=== PATIENT | female | born 1940 | race Caucasian/White ===

== ENCOUNTER 2022-11-13 11:15 | Outpatient (OUT) | payer MEDICARE, BC, SELFPAY ==
--- NOTE | 2022-11-13 11:30 | XR_ITS ---
The [address] [address] Patient Name: SURJIT PATIÑO MRN: [id number] date: 1940 Sex: F Assigned Patient Location: [facility] Current Patient Location: [facility] Accession/Order Number: [id number] Exam Date: 11/13/2022 11:45 Report Date: 11/14/2022 02:39 At the request of: JOSE JUAN PAL Procedure: XR tibia fibula RT 2V EXAM: XR tibia fibula RT 2V 11/13/2022 11:45 AM EDT OH001 CLINICAL STATEMENT: Posterior right leg pain M79.604 COMPARISON: No prior studies are available at the time of dictation. TECHNIQUE: AP and lateral views of the right tibia and fibula are submitted. FINDINGS: Total right knee arthroplasty. There is no acute fracture and/or dislocation. The joint spaces are preserved. Plantar calcaneal spur. There is no significant joint effusion. Soft tissues are unremarkable. Bone mineralization is osteopenic for the patient's age. IMPRESSION: Total right knee arthroplasty. No acute fracture and/or dislocation. Osteopenia. Electronically authenticated by: KP ROSE Date: 11/14/2022 02:39
--- NOTE | 2022-11-13 11:30 | XR_ITS ---
[address] [address] Patient Name: SURJIT PATIÑO MRN: [id number] date: 1940 Sex: F Assigned Patient Location: [facility] Current Patient Location: [facility] Accession/Order Number: [id number] Exam Date: 11/13/2022 11:45 Report Date: 11/13/2022 13:01 At the request of: JOSE JUAN PAL Procedure: XR knee RT 2V EXAM: XR knee RT 2V HISTORY: Posterior Right Leg Pain M79.604 COMPARISON: None. TECHNIQUE: 2 views FINDINGS: Status post total replacement of the right knee. Intact hardware. No acute fracture or dislocation. Mild soft tissue swelling. IMPRESSION: Status post total right knee replacement in anatomical position. Electronically authenticated by: TONY HANKS Date: 11/13/2022 13:01
== END 2022-11-13 11:16 ==
LOC: RAD 11:23
PROVIDERS: PCP Family Medicine; Visit Provider Nurse Practitioner Family
DX: M79.604 Pain in right leg (principal); S80.11XA Contusion of right lower leg, initial encounter; Z96.651 Presence of right artificial knee joint; M85.80 Other specified disorders of bone density and structure, unspecified site; X58.XXXA Exposure to other specified factors, initial encounter
CPT/HCPCS: 73560; 73590

== ENCOUNTER 2023-10-20 10:12 | Outpatient (OUT) | payer MEDICARE, BC, SELFPAY ==
--- NOTE | 2023-10-20 10:14 | MM_ITS ---
Patient Name: SURJIT PATIÑO MR#: [id number] : 1940 Exam Date: 10/20/2023 Ordering Doctor: DR JEANIE BURLESON M.D. RADIOLOGY REPORT PROCEDURE: MM TOMOSYNTHESIS SCREENING BI COMPARISON: MG MAMM SCREEN 3D JOSHUA CAD, 10/15/2021. MG MAMM SCREEN 3D JOSHUA CAD, 10/18/2022. INDICATIONS: Screening Calculator Name NCI Breast Cancer Risk Assessment Tool 5 Year Breast Cancer Risk 2.40% Lifetime Breast Cancer Risk 3.50% Personal Breast Cancer No Personal Ovarian Cancer No Treatments None Family Cancers Mother with cervical cancer at age 56; Mother with colon cancer at age 75. LOCATION: [facility] BREAST COMPOSITION: The breasts are heterogeneously dense,which may obscure small masses. FINDINGS: DIAGNOSTIC CATEGORY 1--NEGATIVE. NO CHANGE FROM COMPARISON ASSESSMENT. Scattered benign-appearing calcifications are present. RIGHT BREAST: No significant suspicious finding. LEFT BREAST: No significant suspicious finding. RECOMMENDATIONS: ROUTINE MAMMOGRAM AND CLINICAL EVALUATION IN 12 MONTHS. PLEASE NOTE: A NORMAL MAMMOGRAM DOES NOT EXCLUDE THE POSSIBILITY OF BREAST CANCER. A CLINICALLY SUSPICIOUS PALPABLE LUMP SHOULD BE BIOPSIED. Dictated by: Tho Drake MD on 10/20/2023 at 11:32 Approved by: Tho Drake MD on 10/20/2023 at 11:34
== END 2023-10-20 10:13 | disposition home or self-care (01) ==
LOC: MAMMO 10:12
PROVIDERS: PCP Family Medicine; Visit Provider Family Medicine
DX: Z12.31 Encounter for screening mammogram for malignant neoplasm of breast (principal); Z80.8 Family history of malignant neoplasm of other organs or systems; Z80.0 Family history of malignant neoplasm of digestive organs
CPT/HCPCS: 77063; 77067

== ENCOUNTER 2024-10-22 13:39 | Outpatient (OUT) | payer MEDICARE, BC, SELFPAY ==
--- OUTSIDE RECORDS SUMMARY | 2024-10-22 14:01 | XMS_ITS | CCD ---
Author Organization [facility] Inform ion Partnership [facility] Care Team Providers Care Reverse Unit Operator Name Role Phone SARAH BETH, DR WARE Admitting Unavailable SARAH BETH, DR WARE Attending Unavailable SARAH BETH, DR WARE Primary Care Unavailable SARAH BETH, DR WARE Consulting Unavailable GUERNSEY, DR BARRY Luna Consulting Unavailable JOSUÉ, DR DRE Rae Consulting Unavailable Belén Burleson MD Primary Care Provider Belén Burleson MD Unavailable Belén Burleson MD Primary Care Provider Jeaneth Hunter APRN Attending Provider Belén Burleson Primary Care Unavailable Jeaneth Hunter Attending Unavailable Jeaneth Hunter Admitting Unavailable JENNY ORNELAS Attending Unavailable JR. GORE GEORGE C Attending Unavaila DOTTY Mendez Attending Unavailable CARY MATAMOROS Attending Unavailable JR. GORE GEORGE C Referring UnavailJENNY Rubi Attending Unavailable CARY MATAMOROS Referring Unavailable BELÉN BURLESON Attending Unavailable Medications Current Medications Medication Drug Class(es) Dates Sig (Normalized) Sig (Original) [id number] 200 actuat albuterol 0.09 mg/actuat metered dose inhaler (19 sources) beta2-Adrenergic Agonist Start: 07-30-2024 take 1 puff(s) by inhalation every four to six hours Albuterol Sulfate (Ventolin Hfa) 90 mcg/actuation HFA aerosol inhaler Active 2 PUFF INHALATION EVERY 4-6 HOURS 8.5 July 30, 2024 12:56pm Start: 05-08-2024 End: 07-30-2024 Albuterol Sulfate (Ventolin Hfa) 90 mcg/actuation HFA aerosol inhaler Discontinued INHALATION May 08, 2024 12:00am July 30, 2024 12:56pm Start: 05-20-2023 End: 05-19-2024 take 2 puff(s) by inhalation every four hours for wheezing albuterol HFA (ProAir HFA) 90 mcg/act inhaler Indications: Wheeze Inhale 2 puffs every 4 (four) hours if needed for wheezing 18 g 11 05/20/2023 Active amoxicillin 500 mg oral tablet (15 sources) Penicillin-class Antibacterial Start: 04-29-2024 take 4 tablets by mouth once at mealtime amoxicillin (Amoxil) 500 MG tablet Indications: Status post left knee replacement 4 tabs PO once 30-60 mins before procedure with food 4 tablet 3 04/29/2024 Active Start: 09-02-2023 End: 04-26-2024 take 4 tablets by mouth once at mealtime amoxicillin (Amoxil) 500 MG tablet Indications: Status post left knee replacement 4 tabs PO once 30-60 mins before procedure with food 4 tablet 3 09/02/2023 04/26/2024 Discontinued (Other) aspirin 81 mg delayed release oral tablet (15 sources) Platelet Aggregation Inhibitor, Nonsteroidal Anti-inflammatory Drug take 1 tablet by mouth in the morning aspirin 81 MG EC tablet Take 81 mg by mouth in the morning. Active Bioflavonoid Products (Renata-C) 500-550 MG tablet (15 sources) Bioflavonoid Pro ducts (Renata-C) 500-550 MG tablet Orally Active Calcium Carb-Cholecalciferol (CALCIUM CARBONATE-VITAMIN D3 PO) (15 sources) take 1 tablet by mouth in the morning Calcium Carb-Cholecalciferol (CALCIUM CARBONATE-VITAMIN D3 PO) Take 1 tablet by mouth in the morning and 1 tablet in the evening. Active fluconazole 100 mg oral tablet (2 sources) Azole Antifungal Start : 08-05 End: 08-19 take 1 tablet by mouth once daily fluconazole (Diflucan) 100 MG tablet Indications: Fungal nail infection Take 1 tablet (100 mg) by mouth Daily for 14 days 14 tablet 08/05/2024 08/19/2024 Active hydroCHLOROthiazide 25 mg oral tablet (17 sources) Thiazide Diuretic Start : 08-17 End: 08-17 take 1 tablet by mouth once daily hydroCHLOROthiazide (HYDRODiuril) 25 MG tablet Indications: Essential hypertension (CMS/HCC) Take 1 tablet (25 mg) by mouth Daily 90 tablet 3 07/03/2024 Active methylPREDNISolone 4 mg oral tablet (2 sources) Corticosteroid Start : 07-30 take 1 tablet by mouth once Methylprednisolone (Medrol (Andrae)) 4 mg tablets,dose pack Active 0 PO per package directions July 30, 2024 12:00am PO PER PKG DIR 24 hr metoprolol succinate 50 mg extended release oral tablet (17 sources) beta-Adrenergic Aleena Start : 05-08 take 1 tablet by mouth every twenty-four hours in the morning metoprolol succinate XL (Toprol-XL) 50 MG 24 hr tablet Indications: Benign hypertension (CMS/HCC) TAKE 1 TABLET BY MOUTH IN THE MORNING 100 tablet 3 07/13/2024 Active Start: 04-09-2024 take 1 tablet by chastity th every twenty-four hours in the morning metoprolol succinate XL (Toprol-XL) 50 MG 24 hr tablet Indications: Benign hypertension (CMS/HCC) TAKE 1 TABLET BY MOUTH IN THE MORNING 100 tablet 04/09/2024 Active Start: 01-15-2024 take 1 tablet by chastity th every twenty-four hours in the morning metoprolol succinate XL (Toprol-XL) 50 MG 24 hr tablet Indications: Benign hypertension (CMS/HCC) TAKE 1 TABLET BY MOUTH IN THE MORNING 100 tablet 01/15/2024 Active miconazole nitrate 20 mg/ml topical solution (8 sources) Azole Antifungal Start: 08-05-2024 Miconazole Ni trate 2 % solution Indications: Fungal nail infection Apply 1 Application topically Daily Continue x 4 months 29.57 mL 2 08/05/2024 Active terbinafine 250 mg oral tablet (2 sources) Allylamine Antifungal Start: 10-07-2024 End: 10-21-2024 take 1 tablet by mouth once daily terbinafine (LamISIL) 250 MG tablet Indications: Onychomycosis of nail of digit of hand Take 1 tablet (250 mg) by mouth Daily for 14 days 14 tablet 10/07/2024 10/21/2024 Active Completed/Discontinued Medications Medication Drug Class(es) Dates Sig (Normalized) Sig (Original) meloxicam 7.5 mg oral tablet (2 sources) Nonsteroidal Anti-inflammatory Drug Start: 05-08-2024 End: 07-30-2024 take 1 tablet by mouth once daily Meloxicam 7.5 mg tablet Discontinued 7.5 MG PO Daily 7 May 08, 2024 12:00am July 30, 2024 11:41am Problems Active Problems Problem Classification Problem Date Documented Date Episodic/Chronic Chronic obstructive pulmonary disease and bronchiectasis (4 sources) Bronchitis; Translations: [Bronchitis, not specified as acute or chronic] 07-30-2024 Episodic Diabetes mellitus without complication (2 sources) Abnormal glucose tolerance test; Translations: [Other abnormal glucose] 04-26-2024 Episodic Essential hypertension (17 sources) Benign essential hypertension; Translations: [Essential (primary) hypertension] Onset: 11-12-2022 04-26-2024 Chronic Menopausal disorders (15 sources) Decreased estrogen level; Translations: [Other primary ovarian failure] Onset: 11-12-2022 11-12-2022 Chronic Mycoses (4 sources) Onychomycosis; Translations: [Tinea unguium] 08-05-2024 Episodic Neoplasms of unspecified nature or uncertain behavior (2 sources) Essential thrombocythemia; Translations: [Essential (hemorrhagic) thrombocythemia] 08-05-2024 Chronic Osteoarthritis (20 sources) Primary gonarthrosis, bilateral; Translations: [Bilateral primary osteoarthritis of knee] Onset: 11-12-2022 11-12-2022 Chronic Other connective tissue disease (15 sources) Artificial knee joint present; Translations: [Presence of unspecified artificial knee joint] Onset: 11-12-2022 11-12-2022 Chronic Other connective tissue disease (17 sources) History of right total knee replacement; Translations: [Presence of right artificial knee joint] Onset: 11-12-2022 11-12-2022 Chronic Other connective tissue disease (15 sources) History of total knee arthroplasty; Translations: [Presence of left artificial knee joint] Onset: 11-12-2022 11-12-2022 Chronic Other injuries and conditions due to external causes (2 sources) Injury of right shoulder; Translations: [Unspecified injury of right shoulder and upper arm, initial encounter] 05-08-2024 Episodic Other injuries and conditions due to external causes (2 sources) Unspecified injury of right shoulder and upper arm, initial encounter; Translations: [Shoulder and upper arm injury] 05-08-2024 Episodic Other lower respiratory disease (1 source) Wheezing; Translations: [Wheezing] Onset: 07-30-2024 Episodic Other non-traumatic joint disorders (2 sources) Pain in left knee; Translations: [Pain in joint, lower leg] 09-14-2024 Episodic Other screening for suspected conditions (not mental disorders or infectious disease) (2 sources) Patient encounter status; Translations: [Encounter for screening for lipoid disorders] 04-26-2024 Episodic Other upper respiratory disease (15 sources) Seasonal allergy; Translations: [Other seasonal allergic rhinitis] Onset: 11-12-2022 11-12-2022 Chronic Other upper respiratory infections (2 sources) Viral upper respiratory tract infection; Translations: [Acute upper respiratory infection, unspecified] 08-05-2024 Episodic Spondylosis; intervertebral disc disorders; other back problems (15 sources) Inflammation of sacroiliac joint; Translations: [Sacroiliitis, not elsewhere classified] Onset: 11-12-2022 11-12-2022 Chronic Past or Other Problems Problem Classification Problem Date Documented Date Episodic/Chronic Other lower respiratory disease (15 sources) Orthopnea; Translations: [Orthopnea] Onset: 05-20-2023 05-20-2023 Episodic Other lower respiratory disease (17 sources) Wheezing; Translations: [Wheezing] Onset: 05-20-2023 05-20-2023 Episodic Otitis media and related conditions (14 sources) Dysfunction of left eustachian tube; Translations: [Unspecified Eustachian tube disorder, left ear] Onset: 04-26-2024 04-26-2024 Episodic Sprains and strains (15 sources) Sprain of left sternoclavicular joint, initial encounter; Translations: [Sprain of sternoclavicular (joint) (ligament)] Onset: 08-18-2023 08-18-2023 Episodic Results Test Name Value Interpretation Reference Range Facility XR Knee - left 1 or 2 Viewso n 09-14-2024 Imaging Result: AP and lateral of left knee showed surgical position and alignment of prosthetic components without evidence of loosening or wear to the femoral, tibial, or patellar components. The alignment appeared to be anatomic. There was no evidence of accelerated or asymmetric wear to the patellar button or tibial tray. There was no evidence of fracture and/or dislocation. Impression: Unremarkable left total knee arthroplasty. [facility] Study observation (narrative) [facility] X-ray reportOrdered By: Antonio Gonzalez on 07-30-2024 Study report [facility] Main [address] [address] XRay Report Signed Patient: Surjit Patiño MR#: [id number] : 1940 Acct:[id number] Age/Sex: 83 / F ADM Date: 5 Loc: XDUCLY Room: Type: REG CLI Attending Dr: Jeaneth Hunter DEVELOPMENT COACH Copies to: Jeaneth Hunter APRN~ Ordering Provider: Jeaneth Hunter APRN Date of Service: 07/30/24 XR/XR chest 2V*: COUGH Plain film chest 2 view HISTORY: Left upper chest pain. Productive cough COMPARISON: None FINDINGS: SUPPORT DEVICES: None POSTSURGICAL CHANGES: None HEART: Within normal limits PULMONARY INOCENCIO: Within normal limits MEDIASTINUM: Unremarkable LUNGS AND PLEURA: No acute lung process, pleural effusion or pneumothorax identified. BONY STRUCTURES: Thoracic spondylosis ADDITIONAL FINDINGS None XR/XR chest 2V* IMPRESSION: No acute process. Impression dictated by: Thiago Gonzalez M.D.07/30/2024 12:28 PM Dictation Location: [place] [address] Transcribed By: [facility] 07/30/24 1228 Dictated By: Thiago Gonzalez DO 07/30/24 1227 Signed By: 07/30/24 1228 [facility] XR chest 2V*on 07-30-2024 XR chest 2V* [facility] Main [address] [address] XRay Report Signed Patient: Surjit Patiño MR#: [id number] : 1940 Acct:[id number] Age/Sex: 83 / F ADM Date: 07/30/24 Loc: XDUCLY Room: Type: REG CLI Attending Dr: Jeaneth Hunter DEVELOPMENT COACH Copies to: Jeaneth Hunter APRN Ordering Provider: Jeaneth Hunter APRN Date of Service: 07/30/24 XR/XR chest 2V*: COUGH Plain film chest 2 view HISTORY: Left upper chest pain. Productive cough COMPARISON: None FINDINGS: SUPPORT DEVICES: None POSTSURGICAL CHANGES: None HEART: Within normal limits PULMONARY INOCENCIO: Within normal limits MEDIASTINUM: Unremarkable LUNGS AND PLEURA: No acute lung process, pleural effusion or pneumothorax identified. BONY STRUCTURES: Thoracic spondylosis ADDITIONAL FINDINGS None XR/XR chest 2V* IMPRESSION: No acute process. Impression dictated by: Thiago Gonzalez M.D.07/30/2024 12:28 PM Dictation Location: [place] [address] Transcribed By: [facility] 07/30/24 1228 Dictated By: Thiago Gonzalez DO 07/30/24 1227 Signed By: 07/30/24 1228 Normal [facility] CBC (INCLUDES DIFF/PLT)on Basophils (Bld) [#/Vol] 0.048 10*3/uL Normal 0-200 [facility] Comment on above: Performed By: #### 6 399, 80041, 7600 #### [facility] [place] [address] Newspaper Clipper: Fidel Gamble MD Basophils/100 WBC (Bld) 0.7 % Normal [facility] Comment on above: Performed By: #### 6 399, 79971, 7600 #### [facility] [place] [address] Newspaper Clipper: Fidel Gamble MD Eosinophils (Bld) [#/Vol] 0.138 10*3/uL Normal 15-500 [facility] Comment on above: Performed By: #### 6 399, 46393, 7600 #### [facility] [place] [address] Newspaper Clipper: Fidel Gamble MD Eosinophils/100 WBC (Bld) 2.0 % Normal [facility] Comment on above: Performed By: #### 6 399, 44791, 7600 #### [facility] [place] [address] Newspaper Clipper: Fidel Gamble MD Erythrocyte distribution width (RBC) [Ratio] 11.8 % Normal 11.0-15.0 [facility] Comment on above: Performed By: #### 6 399, 94127, 7600 #### [facility] of [place] [address] Newspaper Clipper: Fidel Gamble MD Hematocrit (Bld) [Volume fraction] 42.0 % Normal 35.0-45.0 [facility] Comment on above: Performed By: #### 6 399, 52339, 7600 #### [facility] [place] [address] Newspaper Clipper: Fidel Gamble MD Hemoglobin (Bld) [Mass/Vol] 14.1 g/dL Normal 11.7-15.5 [facility] Comment on above: Performed By: #### 6 399, 55411, 7600 #### [facility] [place] [address] Newspaper Clipper: Fidel Gamble MD Lymphocytes (Bld) [#/Vol] 0.814 10*3/uL Low 850-3900 [facility] Comment on above: Performed By: #### 6 399, 63743, 0 #### [facility] of [place] [address] Newspaper Clipper: Fidel Gamble MD Lymphocytes/100 WBC (Bld) 11.8 % Normal [facility] Comment on above: Performed By: #### 6 399, 57783, 0 #### [facility] [place] [address] Newspaper Clipper: Fidel Gamble MD MCH (RBC) [Entitic mass] 30.1 pg Normal 27.0-33.0 [facility] Comment on above: Performed By: #### 6 399, 17038, 7600 #### [facility] of [place] [address] Newspaper Clipper: Fidel Gamble MD MCHC (RBC) [Mass/Vol] 33.6 g/dL Normal 32.0-36.0 [facility] Comment on above: Result Comment: For adults, a slight decrease in the calculated MCHC value (in the range of 30 to 32 g/dL) is most likely not clinically significant; however, it should be interpreted with caution in correlation with other red cell parameters and the patient's clinical condition. Performed By: #### 6 399, 59599, 0 #### [facility] of [place] [address] Newspaper Clipper: Fidel Gamble MD MCV (RBC) [Entitic vol] 89.6 fL Normal 80.0-100.0 [facility] Comment on above: Performed By: #### 6 399, 36223, 0 #### [facility] [place] [address] Newspaper Clipper: Fidel Gamble MD Monocytes (Bld) [#/Vol] 0.58 10*3/uL Normal 200-950 [facility] Comment on above: Performed By: #### 6 399, , 0 #### [facility] [place] [address] Newspaper Clipper: Fidel Gamble MD Monocytes/100 WBC (Bld) 8.4 % Normal [facility] Comment on above: Performed By: #### 6 399, 00080, 0 #### [facility] [place] [address] Newspaper Clipper: Fidel Gamble MD Neutrophils (Bld) [#/Vol] 5.32 10*3/uL Normal 0116-2265 [facility] Comment on above: Performed By: #### 6 399, 07635, 0 #### [facility] [place] [address] Newspaper Clipper: Fidel Gamble MD Neutrophils/100 WBC (Bld) 77.1 % Normal [facility] Comment on above: Performed By: #### 6 399, 76898, 7600 #### [facility] [place] [address] Newspaper Clipper: Fidel Gamble MD Platelet mean volume (Bld) [Entitic vol] 9.8 fL Normal 7.5-12.5 [facility] Comment on above: Performed By: #### 6 399, 68000, 7600 #### [facility] [place] [address] Newspaper Clipper: Fidel Gamble MD Platelets (Bld) [#/Vol] 422 10*3/uL High 140-400 [facility] Comment on above: Performed By: #### 6 399, 67857, 7600 #### [facility] [place] [address] Newspaper Clipper: Fidel Gamble MD RBC (Bld) [#/Vol] 4.69 10*6/uL Normal 3.80-5.10 [facility] Comment on above: Performed By: #### 6 399, 04049, 7600 #### [facility] [place] [address] Newspaper Clipper: Fidel Gamble MD WBC (Bld) [#/Vol] 6.9 10*3/uL Normal 3.8-10.8 [facility] Comment on above: Performed By: #### 6 399, 55292, 7600 #### [facility] [place] [address] Newspaper Clipper: Fidel Gamble MD CBC W Auto Differential pane l (Bld)on 04-27-2024 Basophils (Bld) [#/Vol] 48 10*3/uL [facility] Basophils/100 WBC (Bld) 0.7 % [facility] Eosinophils (Bld) [#/Vol] 138 10*3/uL [facility] Eosinophils/100 WBC (Bld) 2 % [facility] Erythrocyte distribution width (RBC) [Ratio] 11.8 % 11.0 - 15.0 % [facility] Hematocrit (Bld) [Volume fraction] 42 % 35.0 - 45.0 % [facility] Hemoglobin (Bld) [Mass/Vol] 14.1 g/dL 11.7 - 15.5 g/dL [facility] Lymphocytes (Bld) [#/Vol] 814 10*3/uL Low [facility] Lymphocytes/100 WBC (Bld) 11.8 % [facility] MCH (RBC) [Entitic mass] 30.1 pg 27.0 - 33.0 pg [facility] MCHC (RBC) [Mass/Vol] 33.6 g/dL 32.0 - 36.0 g/dL [facility] Comment on above: For adults, a slight decrease in the calculated MCHC value (in the range of 30 to 32 g/dL) is most likely not clinically significant; however, it should be interpreted with caution in correlation with other red cell parameters and the patient's clinical condition. MCV (RBC) [Entitic vol] 89.6 fL 80.0 - 100.0 fL [facility] Monocytes (Bld) [#/Vol] 580 10*3/uL [facility] Monocytes/100 WBC (Bld) 8.4 % [facility] Neutrophils (Bld) [#/Vol] 5320 10*3/uL [facility] Neutrophils/100 WBC (Bld) 77.1 % [facility] Platelet mean volume (Bld) [Entitic vol] 9.8 fL 7.5 - 12.5 fL [facility] ([facility]ld) [#/Vol] 422 10*3/uL High [facility] RBC (Bld) [#/Vol] 4.69 10*6/uL [facility] WBC (Bld) [#/Vol] 6.9 10*3/uL [facility] Albumin [Mass/Vol] 4.5 g/dL Normal 3.6-5.1 [facility] Comment on above: Performed By: #### 6 399, 98828, 2180 #### [facility] [address], [address] [place] [phone] Newspaper Clipper: Fidel Gamble MD Albumin/Globulin [Mass ratio] 1.5 {ratio} Normal 1.0-2.5 [facility] Comment on above: Performed By: #### 6 399, 71215, 0120 #### [facility] [address], [address] [place] [phone] Newspaper Clipper: Fidel Gamble MD ALP [Catalytic activity/Vol] 83 U/L Normal 37-153 [facility] Comment on above: Performed By: #### 6 399, 44129, 7600 #### [facility] of [address], [address] [place] [address] Newspaper Clipper: Fidel Gamble MD ALT [Catalytic activity/Vol] 14 U/L Normal 6-29 [facility] Comment on above: Performed By: #### 6 399, 96420, 7600 #### [facility] of [address], [address] [place] [address] Newspaper Clipper: Fidel Gamble MD AST [Catalytic activity/Vol] 20 U/L Normal 10-35 [facility] Comment on above: Performed By: #### 6 399, 08974, 7600 #### [facility] of [place] [address] Newspaper Clipper: Fidel Gamble MD Bilirubin [Mass/Vol] 0.7 mg/dL Normal 0.2-1.2 [facility] Comment on above: Performed By: #### 6 399, 60011, 7600 #### [facility] of [place] [address] Newspaper Clipper: Fidel Gamble MD BUN/CREATININE RATIO SEE NOTE: Normal 6-22 [facility] Comment on above: Result Comment: Not Reported: BUN and Creatinine are within reference range. Performed By: #### 6 399, 30770, 7600 #### [facility] of [address], [address] [place] [address] Newspaper Clipper: Fidel Gamble MD Calcium [Mass/Vol] 9.9 mg/dL Normal 8.6-10.4 [facility] Comment on above: Performed By: #### 6 399, 77618, 7600 #### [facility] [place] [address] Newspaper Clipper: Fidel Gamble MD Chloride [Moles/Vol] 94 mmol/L Low 98-110 [facility] Comment on above: Performed By: #### 6 399, 45694, 7600 #### [facility] of [place] [address] [place] [address] Newspaper Clipper: Fidel Gamble MD CO2 [Moles/Vol] 29 mmol/L Normal 20-32 [facility] Comment on above: Performed By: #### 6 399, 93002, 7600 #### [facility] of [address], [address] [place] [address] Newspaper Clipper: Fidel Gamble MD Creatinine [Mass/Vol] 0.79 mg/dL Normal 0.60-0.95 [facility] Comment on above: Performed By: #### 6 399, 54217, 0 #### [facility] [place] [address] Newspaper Clipper: Fidel Gamble MD GFR/1.73 sq M.predicted among non-blacks MDRD (S/P/Bld) [Vol rate/Area] 75 mL/min/{1.73_m2} Normal > OR = 60 [facility] Comment on above: Performed By: #### 6 399, 93724, 0 #### [facility] of [address], [address] [place] [address] Newspaper Clipper: Fidel Gamble MD Globulin (S) [Mass/Vol] 3.0 g/dL Normal 1.9-3.7 [facility] Comment on above: Performed By: #### 6 399, 80777, 0 #### [facility] [place] [address] Newspaper Clipper: Fidel Gamble MD Glucose [Mass/Vol] 107 mg/dL High 65-99 [facility] Comment on above: Result Comment: Fasting reference interval For someone without known diabetes, a glucose value between 100 and 125 mg/dL is consistent with prediabetes and should be confirmed with a follow-up test. Performed By: #### 6 399, 26539, 7600 #### [facility] of [address], [address] [place] [address] Newspaper Clipper: Fidel Gamble MD Potassium [Moles/Vol] 4.3 mmol/L Normal 3.5-5.3 [facility] Comment on above: Performed By: #### 6 399, 94371, 7600 #### [facility] of [address], [address] [place] [address] Newspaper Clipper: Fidel Gamble MD Protein [Mass/Vol] 7.5 g/dL Normal 6.1-8.1 [facility] Comment on above: Performed By: #### 6 399, 57019, 7600 #### [facility] of [address], [address] [place] [address] Newspaper Clipper: Fidel Gamble MD Sodium [Moles/Vol] 133 mmol/L Low 135-146 [facility] Comment on above: Performed By: #### 6 399, 94851, 7600 #### [facility] of [address], [address] [place] [address] Newspaper Clipper: Fidel Gamble MD Urea nitrogen [Mass/Vol] 13 mg/dL Normal 7-25 [facility] Comment on above: Performed By: #### 6 399, 63076, 7600 #### [facility] [place] [address] Newspaper Clipper: Fidel Gamble MD LIPID PANEL, [facility] 04-09 Cholesterol [Mass/Vol] 204 mg/dL High <200 [facility] Comment on above: Order Comment: FASTI NG:YES FASTING: YES Performed By: #### 6 399, 52873, 7600 #### [facility] [place] [address] Newspaper Clipper: Fidel Gamble MD Cholesterol in HDL [Mass/Vol] 69 mg/dL Normal > OR = 50 [facility] Comment on above: Order Comment: FASTI NG:YES FASTING: YES Performed By: #### 6 399, 78002, 7600 #### [facility] [place] [address] Newspaper Clipper: Fidel Gamble MD Cholesterol in LDL [Mass/Vol] 114 mg/dL High [facility] Comment on above: Order Comment: FASTI NG:YES FASTING: YES Result Comment: Refe rence range: <100 Desirable range <100 mg/dL for primary prevention; <70 mg/dL for patients with CHD or diabetic patients with > or = 2 CHD risk factors. LDL-C is now calculated using the Tone calculation, which is a validated novel method providing better accuracy than the Friedewald equation in the estimation of LDL-C. Chuy NAVA et al. TASH. 2013;310(19): 5044-1397 (http://education.Enel OGK-5/faq/FEF618) Performed By: #### 6 399, 41117, 7600 #### [facility] [address], [address] [place] [address] Newspaper Clipper: Fidel Gamble MD Cholesterol.total/Ch olesterol in HDL [Mass ratio] 3.0 {ratio} Normal <5.0 [facility] Comment on above: Order Comment: FASTI NG:YES FASTING: YES Performed By: #### 6 [id number], [id number], [id number] #### [facility] [address], [address] [place] [address] Newspaper Clipper: Fidel Gamble MD NON HDL CHOLESTEROL 135 mg/dL (calc) High <130 [facility] Comment on above: Order Comment: FASTI NG:YES FASTING: YES Result Comment: For patients with diabetes plus 1 major ASCVD risk factor, treating to a non-HDL-C goal of <100 mg/dL (LDL-C of <70 mg/dL) is considered a therapeutic option. Performed By: #### 6 [id number], [id number], [id number] #### [facility] [address], [address] [place] [address] Newspaper Clipper: Fidel Gamble MD Triglyceride [Mass/Vol] 100 mg/dL Normal <150 [facility] Comment on above: Order Comment: FASTI NG:YES FASTING: YES Performed By: #### 6 [id number], [id number], [id number] #### [facility] [address], [address] [place] [address] Newspaper Clipper: Fidel Gamble MD Laboratory - Chemistry and C hemistry - challengeon 04-27-2024 Albumin [Mass/Vol] 4.5 g/dL 3.6 - 5.1 g/dL NO [facility] Albumin/Globulin [Mass ratio] 1.5 {ratio} [facility] ALP [Catalytic activity/Vol] 83 U/L 37 - 153 U/L [facility] ALT [Catalytic activity/Vol] 14 U/L 6 - 29 U/L [facility] AST [Catalytic activity/Vol] 20 U/L 10 - 35 U/L [facility] Bilirubin [Mass/Vol] 0.7 mg/dL 0.2 - 1 .2 mg/dL [facility] Calcium [Mass/Vol] 9.9 mg/dL 8.6 - 10. 4 mg/dL [facility] Chloride [Moles/Vol] 94 mmol/L Low 98 - 11 0 mmol/L [facility] CO2 [Moles/Vol] 29 mmol/L 20 - 32 mmol/L [facility] Creatinine [Mass/Vol] 0.79 mg/dL 0.60 - 0.95 mg/dL [facility] GFR/1.73 sq M.predicted among non-blacks MDRD (S/P/Bld) [Vol rate/Area] 75 mL/min/{1.73_m2} > OR = 60 mL/min/1.73m2 [facility] Globulin (S) [Mass/Vol] 3 g/dL [facility] Glucose [Mass/Vol] 107 mg/dL High 65 - 99 mg/dL [facility] Comment on above: Fasting reference interval For someone without known diabetes, a glucose value between 100 and 125 mg/dL is consistent with prediabetes and should be confirmed with a follow-up test. Potassium [Moles/Vol] 4.3 mmol/L 3.5 - 5.3 mmol/L [facility] Protein [Mass/Vol] 7.5 g/dL 6.1 - 8.1 g/dL NO [facility] Sodium [Moles/Vol] 133 mmol/L Low 135 - 146 mmol/L [facility] Urea nitrogen [Mass/Vol] 13 mg/dL 7 - 25 mg/dL [facility] Urea nitrogen/Creatinine [Mass ratio] SEE NOTE: [facility] Comment on above: Not Reported: BUN an d Creatinine are within reference range. Lipid 1996 panelon 4 Cholesterol [Mass/Vol] 204 mg/dL High NINF - 200 mg/dL [facility] Cholesterol in HDL [Mass/Vol] 69 mg/dL > OR = 50 [facility] Cholesterol in LDL [Mass/Vol] 114 mg/dL High mg/dL (calc) [facility] Comment on above: Reference range: <10 0 Desirable range <100 mg/dL for primary prevention; <70 mg/dL for patients with CHD or diabetic patients with > or = 2 CHD risk factors. LDL-C is now calculated using the Tone calculation, which is a validated novel method providing better accuracy than the Friedewald equation in the estimation of LDL-C. Chuy NAVA et al. TASH. 2013;310(19): 7234-7602 (http://education.Enel OGK-5/faq/ZHC810) Cholesterol non HDL [Mass/Vol] 135 mg/dL High [facility] Comment on above: For patients with di abetes plus 1 major ASCVD risk factor, treating to a non-HDL-C goal of <100 mg/dL (LDL-C of <70 mg/dL) is considered a therapeutic option. Cholesterol.total/Ch olesterol in HDL [Mass ratio] 3 {ratio} [facility] Triglyceride [Mass/Vol] 100 mg/dL [facility] - 150 mg/dL [facility] No Panel Informationon 04-27 Interpretation and review of laboratory results Abnormal [facility] FASTING:YES FASTING: YES [facility] Organization Information Site ID: QPT Name: [facility] Address: [address] [place] [address], [address] [place] [id number] Director: Fidel Gamble MD [facility] e XR Knee - right 1 or 2 Views on 01-27-2024 Imaging Result: January 27, 2024 x-rays AP weight-bearing bilateral knees and lateral of the right knee demonstrate cemented knee replacement in good position alignment. There are no signs of loosening fracture or failure. There is also a knee replacement on the left side in good position alignment. Impression: Stable appearance of right total knee replacement Yury Matamoros D.O. [facility] [employer] [facility] Study observation (narrative) [facility] MG MAMM SCREEN 3D JOSHUA CADon 10-18-2022 MG MAMM SCREEN 3D JOSHUA CAD Patient: SURJIT PATIÑOLiza Exam Date: 10/18/2022 : 1940 Gender:F Ordering : DR BELÉN BURLESON M.D. Admission #: [id number] Family : Order #: [id number] CLICK HERE TO VIEW EXAM RADIOLOGY REPORT PROCEDURE: MAMMOGRAM SCREENING 3D BILATERAL CAD COMPARISON: MG MAMM SCREEN 3D JOSHUA CAD, 10/11/2020. MG MAMM SCREEN 3D JOSHUA CAD, 10/15/2021. INDICATIONS: Screening mammography Calculator Name NCI Breast Cancer Risk Assessment Tool 5 Year Breast Cancer Risk 2.50% Lifetime Breast Cancer Risk 3.80% Personal Breast Cancer No Personal Ovarian Cancer No Treatments None Family Cancers Mother with cervical cancer at age 56; Mother with colon cancer at age 75. LOCATION: [facility] BREAST COMPOSITION: Heterogeneously dense,which may obscure small masses. FINDINGS: DIAGNOSTIC CATEGORY 1--NEGATIVE. NO CHANGE FROM COMPARISON ASSESSMENT. Scattered benign-appearing calcifications are present. RIGHT BREAST: No significant suspicious finding. LEFT BREAST: No significant suspicious finding. RECOMMENDATIONS: ROUTINE MAMMOGRAM AND CLINICAL EVALUATION IN 12 MONTHS. PLEASE NOTE: A NORMAL MAMMOGRAM DOES NOT EXCLUDE THE POSSIBILITY OF BREAST CANCER. A CLINICALLY SUSPICIOUS PALPABLE LUMP SHOULD BE BIOPSIED. Dictated by: Barry Drake MD on 10/18/2022 at 13:05 Approved by: Barry Drake MD on 10/18/2022 at 13:22 Normal [facility] XR DEXA BONE DENSITYon 10-18 XR DEXA BONE DENSITY EXAMINATION: XR DEX A BONE DENSITY, 10/18/2022 9:48 AM EDT HISTORY: Primary ovarian failure COMPARISON: DEXA bone densitometry 10/11/2020 TECHNIQUE: Dual-energy X-ray absorptiometry (DEXA) bone density study performed for the axial skeleton. FINDINGS: SPINE ANALYSIS: Average bone mineral density is 1.192 g/cm2. T-score (standard deviation relative to young adult mean): -0.1 . -10.3% change since prior study. HIP ANALYSIS: Lowest bone mineral density is within the right femoral trochanter, 0.761 g/cm2. T-score (standard deviation relative to young adult mean): -0.8 . -5.3% change since prior study. IMPRESSION: [employer] Classification: Normal - Low Fracture Risk Electronically authenticated by: DRE MOSES Date: 2022-10-18 10:30 Normal [facility] Vital Signs Date Time Vital Sign Value Performing Clinician Facility 10-07-2024 09:36-0400 Body height 154.9 cm Jenny Ornelas [employer] Work Phone: [facility] 10-07-2024 09:36-0400 Body mass index (BMI) [Ratio] 25.85 kg/m2 Jenny Ornelas [employer]CIAL LO[employer]ER Work Phone: [facility] 10-07-2024 09:36-0400 Body weight 62.05 kg Jenny Ornelas [employer]CIAL LOAN [employer] Work Phone: [facility] 10-07-2024 09:36-0400 Diastolic blood pressure 78 mm[Hg] Jenny Ornelas [employer]CIAL LO[employer]ER Work Phone: [facility] 10-07-2024 09:36-0400 Heart rate 91 /min Jenny Ornelas [employer] LO[employer] Work Phone: [facility] 10-07-2024 09:36-0400 Respiratory rate 16 /min Jenny Ornelas [employer]CIAL LOAN [employer]ER Work Phone: [facility] 10-07-2024 09:36-0400 SaO2% (BldA) [Mass fraction] 98 % Jenny Ornelas [employer]CIAL LO[employer] Work Phone: [facility] 10-07-2024 09:36-0400 Systolic blood pressure 122 mm[Hg] Jenny Ornelas [employer]ERCIAL LOAN [employer]ER Work Phone: [facility] 08-05-2024 13:47-0500 Body height 154.9 cm Jenny Ornelas [employer]ERCIAL LOAN [employer]ER Work Phone: [facility] 08-05-2024 13:47-0500 Body mass index (BMI) [Ratio] 25.7 kg/m2 Jenny Ornelas [employer]ERCIAL LO[employer]ER Work Phone: [facility] 08-05-2024 13:47-0500 Body weight 61.69 kg Jenny Ornelas [employer]CIAL LO[employer]ER Work Phone: [facility] 08-05-2024 13:47-0500 Diastolic blood pressure 84 mm[Hg] Jenny Ornelas [employer]CIAL LO[employer]ER Work Phone: [facility] 08-05-2024 13:47-0500 Heart rate 74 /min Jenny Matt [employer]CIAL LO[employer]ER Work Phone: [facility] 08-05-2024 13:47-0500 SaO2% (BldA) [Mass fraction] 98 % Jenny Ornelas [employer]CIAL LOAN [employer]ER Work Phone: [facility] 08-05-2024 13:47-0500 Systolic blood pressure 136 mm[Hg] Jenny Ornelas [employer]CIAL LO[employer]ER Work Phone: [facility] 07-30-2024 11:51-0500 Body height 154.94 cm Belén Burleson MD Work Phone: [facility] 07-30-2024 11:51-0500 Body mass index (BMI) [Ratio] 26.3 kg/m2 Belén Burleson MD Work Phone: [facility] 07-30-2024 11:51-0500 Body temperature 98 [degF] Belén Burleson MD Work Phone: [facility] 07-30-2024 11:51-0500 Body weight 63.27 kg Belén Burleson MD Work Phone: [facility] 07-30-2024 11:51-0500 Diastolic blood pressure 92 mm[Hg] Belén Burleson MD Work Phone: [facility] 07-30-2024 11:51-0500 Heart rate 83 /min Belén Burleson MD Work Phone: [facility] 07-30-2024 11:51-0500 Respiratory rate 18 /min Belén Burleson MD Work Phone: [facility] 07-30-2024 11:51-0500 SaO2% (BldA) [Mass fraction] 98 % Belén Burleson MD Work Phone: [facility] 07-30-2024 11:51-0500 Systolic blood pressure 158 mm[Hg] Belén Burleson MD Work Phone: [facility] 05-08-2024 14:55-0500 Body height 154.94 cm Belén Burleson MD Work Phone: [facility] 05-08-2024 14:55-0500 Body mass index (BMI) [Ratio] 26.2 kg/m2 Belén Burleson MD Work Phone: [facility] 05-08-2024 14:55-0500 Body temperature 99.1 [degF] Belén Burleson MD Work Phone: [facility] 05-08-2024 14:55-0500 Body weight 63.04 kg Belén Burleson MD Work Phone: [facility] 05-08-2024 14:55-0500 Diastolic blood pressure 85 mm[Hg] Belén Burleson MD Work Phone: [facility] 05-08-2024 14:55-0500 Heart rate 75 /min Belén Burleson MD Work Phone: [facility] 05-08-2024 14:55-0500 Respiratory rate 18 /min Belén Burleson MD Work Phone: [facility] 05-08-2024 14:55-0500 SaO2% (BldA) [Mass fraction] 96 % Belén Burleson MD Work Phone: [facility] 05-08-2024 14:55-0500 Systolic blood pressure 148 mm[Hg] Belén Burleson MD Work Phone: [facility] 04-26-2024 09:38-0500 Body height 154.9 cm Belén Burleson MD Work Phone: [facility] 04-26-2024 09:38-0500 Body mass index (BMI) [Ratio] 25.32 kg/m2 Belén Burleson MD Work Phone: [facility] 04-26-2024 09:38-0500 Body weight 60.78 kg Belén Burleson MD Work Phone: [facility] 04-26-2024 09:38-0500 Diastolic blood pressure 88 mm[Hg] Belén Burleson MD Work Phone: [facility] 04-26-2024 09:38-0500 Heart rate 80 /min Belén Burleson MD Work Phone: [facility] 04-26-2024 09:38-0500 SaO2% (BldA) [Mass fraction] 98 % Belén Burleson MD Work Phone: [facility] 04-26-2024 09:38-0500 Systolic blood pressure 134 mm[Hg] Belén Burleson MD Work Phone: [facility] Encounters Encounter Date Encounter Type Care Provider Facility Start: 10-07-2024 End: 10-07-2024 Bamboo flowsheet Jenny Ornelas [employer] Work Phone: [facility] Start: 10-07-2024 End: 10-07-2024 Bamboo flowsheet Jenny Ornelas [employer] Work Phone: [facility] Start: 10-07-2024 End: 10-07-2024 Office outpatient visit 15 minutes Jenny Ornelas [employer] Work Phone: [facility] Comment on above: Onychomycosis of stewart l of digit of hand (Primary Dx) Start: 10-07-2024 End: 10-07-2024 ambulatory JENNY ORNELAS Not Available Start: 09-14-2024 End: 09-14-2024 Bamboo VISupheet Jr. Gualberto Gore DO Work Phone: [facility] Start: 09-14-2024 End: 09-14-2024 Bamboo flowsheet Jr. Gualberto Gore DO Work Phone: [facility] Start: 09-14-2024 End: 09-14-2024 Office outpatient visit 15 minutes Jr. Gualberto Gore DO Work Phone: [facility] Comment on above: Status post bilatera l knee replacements (Primary Dx); Acute pain of left knee Start: 09-14-2024 End: 09-14-2024 ambulatory GUALBERTO CHI Not Available Start: 08-05-2024 End: 08-05-2024 Bamboo flowsheet Jenny Ornelas [employer] LO[employer]ER Work Phone: [facility] Start: 08-05-2024 End: 08-05-2024 Bamboo flowsheet Jenny Ornelas [employer] LO[employer]ER Work Phone: [facility] Start: 08-05-2024 End: 08-05-2024 Office outpatient visit 25 minutes Jenny Ornelas [employer] Work Phone: [facility] Comment on above: Fungal nail infectio n (Primary Dx); Viral upper respiratory tract infection; Essential (hemorrhagic) thrombocythemia (CMS/HCC) Start: 08-05-2024 End: 08-05-2024 ambulatory JENNY ORNELAS Not Available Start: 07-30-2024 End: 07-30-2024 ambulatory Belén Burleson MD Work Phone: [facility] Work Phone: Start: 07-30-2024 End: 07-30-2024 Patient encounter procedure Belén Burleson MD Work Phone: [facility] [place] Work Phone: Start: 05-08-2024 End: 05-08-2024 Patient encounter procedure Belén Burleson MD Work Phone: [facility] [place] Work Phone: Start: 04-26-2024 End: 04-26-2024 Bamboo flowsheet Belén Burleson MD Work Phone: [facility] Start: 04-26-2024 End: 04-26-2024 Bamboo flowsheet Belén Burleson MD Work Phone: [facility] Start: 04-26-2024 End: 04-26-2024 Assay of hemosiderin, quant Belén Burleson MD Work Phone: [facility] Start: 04-26-2024 End: 04-26-2024 Patient encounter procedure Belén Burleson MD Work Phone: [facility] Comment on above: Routine general medi ashwini examination at health care facility (Primary Dx); Abnormal glucose tolerance test; Benign essential hypertension (CMS/HCC); Medicare annual wellness visit, subsequent; Screening for lipid disorders; ETD (Eustachian tube dysfunction), left Start: 04-26-2024 End: 04-26-2024 ambulatory BELÉN BURLESON Not Available Start: 01-27-2024 End: 01-27-2024 Bamboo flowsheet Cary Matamoros DO Work Phone: [facility] Start: 01-27-2024 End: 01-27-2024 Bamboo flowsheet Cary Matamoros DO Work Phone: [facility] Start: 01-27-2024 End: 01-27-2024 Office outpatient visit 10 minutes Cary Matamoros DO Work Phone: [facility] Comment on above: Primary osteoarthrit is of right knee; History of total right knee replacement Start: 01-27-2024 End: 01-27-2024 ambulatory CARY MATAMOROS Not Available Start: 01-19-2024 End: 01-19-2024 ambulatory DOTTY A RICKEY Not Available Start: 04-22-2023 Assay of hemosiderin , quant Cary Matamoros DO Work Phone: [facility] Start: 10-18-2022 End: 10-19-[address] BELÉN BURLESON Facility: Procedures Date Procedure Procedure Detail Performing Clinician Start: 09-14-2024 Radiologic examination knee 1/2 views Jr. Gualberto Gore DO Work Phone: Start: 07-30-2024 Plain chest X-ray Belén Burleson MD Work Phone: Start: 04-26-2024 Complete blood count with white cell differential, automated Belén Burleson MD Work Phone: Start: 04-26-2024 Comprehensive metabolic panel Belén Burleson MD Work Phone: Start: 04-26-2024 Lipid panel Belén Burleson MD Work Phone: Start: 01-27-2024 Radiologic examination knee 1/2 views Cary Matamoros DO Work Phone: Start: 11-12-2022 H/O: hysterectomy Status post hysterectomy Cary Matamoros DO Work Phone: History of operative procedure on knee Status post bilateral knee replacements Jr. Gualberto Gore DO Work Phone: Plan of Treatment Date Care Activity Detail Author Start: 09-12-2026 End: 09-12-2026 Patient encounter procedure 09/12/2026 11:00 AM EDT Office Visit [facility] [address] [place] [phone] Jr. Gualberto Gore, DO [address] [place] [address] [facility] Start: 04-26-2025 Medicare Annual Well ness (AWV) Medicare Annual Wellness (AWV) [facility] Start: 02-01-2025 End: 02-01-2025 Patient encounter procedure 02/01/2025 10:45 AM EDT Office Visit [facility] [address] [place] [id number] Cary Matamoros, DO [address] [place] [address] [facility] Start: 01-18-2025 End: 01-18-2025 Patient encounter procedure 01/18/2025 11:30 AM EDT Office Visit [facility] [address] [place] [address] Dotty Singer MD [address] [place] [address] [facility] Start: 11-11-2024 End: 11-11-2024 Patient encounter procedure 11/11/2024 10:00 AM EDT Office Visit [facility] [address] [place] [address] Jenny Ornelas, [employer] LO[employer]ER [address] [place] [address] [facility] Start: 10-25-2024 End: 10-25-2024 Patient encounter procedure 10/25/2024 9:30 AM EDT Office Visit [facility] [address] [place] [address] Belén Burleson MD [address] [place] [address] [facility] Start: 10-07-2024 End: 10-07-2024 Patient encounter procedure 10/07/2024 9:30 AM EDT Office Visit [facility] [address] [place] [address] Jenny Ornelas, [employer] LO[employer]ER [address] [place] [address] Arrived [facility] Comment on above: Arrived Start: 10-06-2024 End: 10-06-2024 Patient encounter procedure 10/06/2024 1:00 PM EDT Office Visit [facility] [address] [place] [address] Jenny Ornelas, [employer]CIAL LO[employer]ER [address] [place] [address] [facility] Start: 09-14-2024 End: 09-14-2024 Patient encounter procedure 09/14/2024 10:00 AM EDT Office Visit [facility] [address] [place] [phone] Jr. Gualberto Gore, DO [address] [place] [address] Arrived [facility] Comment on above: Arrived Start: 08-31-2024 End: 08-31-2024 Patient encounter procedure [facility] Start: 08-05-2024 End: 08-05-2024 Patient encounter procedure 08/05/2024 2:00 PM EST Office Visit [facility] [address] [place] [address] Jenny Ornelas, [employer] LO[employer]ER [address] [place] [address] Arrived [facility] Comment on above: Arrived Start: 04-22-2024 Medicare Annual Well ness (AWV) Medicare Annual Wellness (AWV) [facility] Start: 02-17-2024 End: 02-17-2024 Patient encounter procedure 02/17/2024 9:00 AM EDT Office Visit [facility] [address] [place] [address] Belén Burleson MD [address] [place] [address] [facility] Start: 02-08-2024 Influenza vaccination Influenza Vacc ine (#1) [facility] Start: 01-27-2024 End: 01-27-2024 Patient encounter procedure 01/27/2024 10:15 AM EDT Office Visit [facility] [address] [place] [address] Cary Matamoros, DO [address] [place] [address] Primary osteoarthritis of right knee; History of total right knee replacement [facility] Comment on above: Primary osteoarthrit is of right knee; History of total right knee replacement XR Chest 2 Views [facility] Immunizations Immunization Date Immunization Notes Care Provider Fa [facility] 04-19-2024 influenza, high dose seasonal, preservative-free Belén Burleson MD Work Phone: [facility] 04-16-2023 Influenza, High-dose Seasonal, Quadrivalent, Preservative Free Cary Matamoros DO Work Phone: [facility] 04-16-2023 influenza virus vacc ine, unspecified formulation Cary Matamoros DO Work Phone: [facility] 04-08-2022 Influenza, High-dose Seasonal, Quadrivalent, Preservative Free Cary Matamoros DO Work Phone: [facility] 03-30-2022 Moderna Bivalent Urrutia ster Vaccination Cary Matamoros DO Work Phone: [facility] 03-30-2021 influenza, high dose seasonal, preservative-free Cary Matamoros DO Work Phone: [facility] 04-10-2020 influenza, high dose seasonal, preservative-free Cary Matamoros DO Work Phone: [facility] 07-12-2019 zoster vaccine recombinant Cary Matamoros DO Work Phone: [facility] 05-06-2019 zoster vaccine recombinant Cary Matamoros DO Work Phone: [facility] 04-01-2019 pneumococcal conjuga te vaccine, 13 valent Cary Matamoros DO Work Phone: [facility] 03-22-2019 seasonal influenza, intradermal, preservative free Cary Matamoros DO Work Phone: [facility] 03-04-2018 tetanus toxoid, redu venkat diphtheria toxoid, and acellular pertussis vaccine, adsorbed Cary Matamoros DO Work Phone: [facility] 05-26-2017 influenza, seasonal, injectable, preservative free Cary Matamoros DO Work Phone: [facility] 03-09-2016 influenza, injectabl e, quadrivalent, preservative free Cary Matamoros DO Work Phone: [facility] 03-13-2015 influenza, injectabl e, madin katy canine kidney, preservative free Cary Matamoros DO Work Phone: [facility] 01-07-2015 pneumococcal polysaccharide vaccine, 23 valent Cary Matamoros DO Work Phone: [facility] 12-21-2009 zoster vaccine, live Cary moreira DO Work Phone: [facility] Payers Date Payer Category Payer Medicare [id number] 2024 Self-pay 2011 [facility] BCBS [id number] 2011 Unknown BCBS BCBS [id number] 2011-Present [phone] [id number] 2007 Medicare [id number] 1959 Medicare [id number] 1959 Unknown [id number] 1940 Unknown [id number] 9.2.593 1942 Unknown [id number] 9.2.1259 1942 Unknown [id number] 9.2.1259 1942 Unknown [id number] 9.2.1259 1942 Unknown [id number] 9.2.1259 1942 Unknown [id number] 9.2.1259 1942 Unknown [id number] 9.2.1259 1942 Unknown [id number] 9.2.1259 1942 Unknown [id number] 9.2.1259 Unknown [id number] 9.2.531 Social History Date Type Detail Facility Start: 11-13-2022 End: 05-08-2024 Tobacco smoking status NHIS Never smoked tobacco [facility] Start: 11-13-2022 Tobacco use and exposure Smokeless tobacco non-user [facility] Start: 04-26-2024 End: 10-07-2024 Alcoholic beverage intake Current drinker of alcohol (finding) [facility] Start: 04-26-2024 End: 10-07-2024 History of Social function [facility] Start: 04-26-2024 End: 10-07-2024 Tobacco use panel [facility] Start: 05-20-2023 Alcohol Comment Points: 1, Interpretation: Negative [facility] Start: 1940 Sex assigned at Not on file [facility] Start: 07-30-2024 End: 07-31-2024 Sex Female (finding) [facility] Start: 1940 Sex Assigned At Female F [facility] Functional Status Date Assessment Result Facility 10-07-2024 Patient Health Quest ionnaire 2 item (PHQ-2) [Reported] [facility] Clinical Notes 01-27-2024 to 10-07-2024 Jenny Ornelas NP - 10/07/2024 9:30 AM EDT. Gualberto Gore DO - 09/14/2024 10:00 AM Sebastián Ornelas NP - 08/05/2024 2:00 PM ESTPatient Instructions Note Date & Type Note Facility 10-07-2024 History of Presen t illness Narrative Images from the original note were not included. Subjective Patient ID: Surjit Patiño is a 84 y.o. female who presents for nail fungus. Surjit presents today for a F/U for nail fungus. She says the fungus is not any better. Current Outpatient Medications on File Prior to Visit Medication Sig Dispense Refill albuterol HFA (ProAir HFA) 90 mcg/act inhaler Inhale 2 puffs every 4 (four) hours if needed for wheezing 18 g 11 amoxicillin (Amoxil) 500 MG tablet 4 tabs PO once 30-60 mins before procedure with food 4 tablet 3 aspirin 81 MG EC tablet Take 81 mg by mouth in the morning. Bioflavonoid Products (Renata-C) 500-550 MG tablet Orally Calcium Carb-Cholecalciferol (CALCIUM CARBONATE-VITAMIN D3 PO) Take 1 tablet by mouth in the morning and 1 tablet in the evening. hydroCHLOROthiazide (HYDRODiuril) 25 MG tablet Take 1 tablet (25 mg) by mouth Daily 90 tablet 3 metoprolol succinate XL (Toprol-XL) 50 MG 24 hr tablet TAKE 1 TABLET BY MOUTH IN THE MORNING 100 tablet 3 Miconazole Nitrate 2 % solution Apply 1 Application topically Daily Continue x 4 months 29.57 mL 2 No current facility-administered medications on file prior to visit. I have reviewed and reconciled the history and medication list with the patient today. 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 Matamoros Visit Vitals Smoking Status Never Review of Systems Constitutional: Negative. HENT: Negative. Eyes: Negative. Respiratory: Negative. Cardiovascular: Negative. Gastrointestinal: Negative. Genitourinary: Negative. Musculoskeletal: Negative. Skin: Fungal nails Neurological: Negative. Psychiatric/Behavioral: Negative. Hematological: Negative. Endocrine: Negative. Allergic/Immunologic: Negative. Objective Physical Exam Vitals reviewed. Constitutional: Appearance: Normal appearance. HENT: Head: Normocephalic and atraumatic. Right Ear: External ear normal. Left Ear: External ear normal. Nose: Nose normal. Mouth/Throat: Mouth: Mucous membranes are moist. Eyes: Conjunctiva/sclera: Conjunctivae normal. Cardiovascular: Rate and Rhythm: Normal rate and regular rhythm. Pulses: Normal pulses. Heart sounds: Normal heart sounds. Abdominal: Palpations: Abdomen is soft. Musculoskeletal: General: Normal range of motion. Cervical back: Normal range of motion and neck supple. Skin: Comments: Fungal fingernails both hands Neurological: General: No focal deficit present. Mental Status: She is alert and oriented to person, place, and time. Psychiatric: Mood and Affect: Mood normal. Behavior: Behavior normal. Thought Content: Thought content normal. Judgment: Judgment normal. Assessment/Plan 1. Onychomycosis of nail of digit of hand (Primary) Discussed diagnosis, use of terbinafine and its most common side effects. She is given information regarding otc fungoid tincture. She reports that she did not use this as her pharmacy gave her some cream that did not work. Follow up as discussed. - terbinafine (LamISIL) 250 MG tablet; Take 1 tablet (250 mg) by mouth Daily for 14 days Dispense: 14 tablet; Refill: 0 No follow-ups on file. documented in this encounter [facility] 09-14-2024 History of Presen t illness Narrative Images from the original note were not included. HISTORY OF PRESENT ILLNESS: EST PT Surjit Patiño is an 84 y.o. @ female. EST PT WITH DR MATAMOROS- HERE FOR 2 YEAR RECHECK LT TKA (09/11/22)- DOING WELL XRAY TODAY 09/14/24 EPIC XRAY 09/02/23 EPIC XRAY 03/04/23 ECW MINIMAL OCCASIONAL DISCOMFORT- GOOD ROM- DENIES INSTABILITY- NO SWELLING- NO PAIN MEDS HX RT TKA PER DR MULLIGAN 2014 ALLERGIES: No Known Allergies HOME MEDICATIONS: Current Outpatient Medications Medication Instructions albuterol HFA (ProAir HFA) 90 mcg/act inhaler 2 puffs, Inhalation, Every 4 hours PRN amoxicillin (Amoxil) 500 MG tablet 4 tabs PO once 30-60 mins before procedure with food aspirin 81 mg, Daily RT Bioflavonoid Products (Renata-C) 500-550 MG tablet Orally Calcium Carb-Cholecalciferol (CALCIUM CARBONATE-VITAMIN D3 PO) 1 tablet, 2 times daily hydroCHLOROthiazide (HYDRODIURIL) 25 mg, Oral, Daily metoprolol succinate XL (TOPROL-XL) 50 mg, Oral, Every morning Miconazole Nitrate 2 % solution 1 Application, Apply externally, Daily, Continue x 4 months PHYSICAL EXAM: Knee Musculoskeletal Exam Gait Gait is normal. Inspection Leg length disparity: no discrepancy Left Erythema: none Effusion: none Edema: none Ecchymosis: none Deformity: none Alignment: normal Previous incision: anterior Incision: well-healed Palpation Left Left knee palpation is unremarkable. Increased warmth: none Masses: none Tenderness: none Range of Motion Left Left knee range of motion is normal and full. Active extension: 0 Passive extension: 0 Active flexion: 120 Passive flexion: 120 Strength Left Left knee strength is normal. Extension: 5/5. Flexion: 5/5. Instability Left Instability signs: none - stable Varus stress grade: normal Valgus stress grade: normal Neurovascular Left Left knee neurovascular exam is normal. Pulses - PT: normal Posterior tibial: 2+ Capillary refill: warm and well-perfused Special Signs Left Left knee special signs are normal. Patellar apprehension: none General Constitutional: appears stated age Labored breathing: no Psychiatric: normal mood and affect Neurological: alert Skin: intact Lymphadenopathy: none Vitals: There is no height or weight on file to calculate BMI. Tobacco Use: Low Risk (09/14/2024) Patient History Smoking Tobacco Use: Never Smokeless Tobacco Use: Never Passive Exposure: Not on file Alcohol Use: Not on file IMAGING: XR knee 1 or 2 views left Imaging Result: AP and lateral of left knee showed surgical position and alignment of prosthetic components without evidence of loosening or wear to the femoral, tibial, or patellar components. The alignment appeared to be anatomic. There was no evidence of accelerated or asymmetric wear to the patellar button or tibial tray. There was no evidence of fracture and/or dislocation. Impression: Unremarkable left total knee arthroplasty. Procedures Orders Placed This Encounter Procedures XR knee 1 or 2 views left Order Specific Question: Reason for exam: Answer: PAIN ASSESSMENT: ICD-10-CM 1. Status post bilateral knee replacements Z96.653 2. Acute pain of left knee M25.562 XR knee 1 or 2 views left PLAN: We have discussed her case with her at length including but not limited to symptoms, physical exam and x-rays. She is progressing very well and glad that she had her knees replaced. We'll see her back in 2 years to reassess bilateral total knee replacements. Questions answered in laymen terms at the bedside. The diagnosis, home exercise plan and any ongoing restrictions/ recommendations reviewed. If unable to be reached in office, I recommend evaluation at nearest Emergency Room if any symptoms worsened or new symptoms develop for requiring urgent evaluation. documented in this encounter [facility] 08-05-2024 History of Presen t illness Narrative Images from the original note were not included. HPI Follow-up Additional comments: Pt recently went to for cough/congestion dx: viral/URI Last edited by Kyra Naylor LPN on 08/05/2024 2:08 PM. Subjective Patient ID: Surjit Patiño is a 83 y.o. female who presents for Follow-up (Pt recently went to for cough/congestion dx: viral/URI). Pt was given medrol dose pack for URI pt finished medication and feeling great Pt denies: fever,cough,wheezing,congestion Current Outpatient Medications on File Prior to Visit Medication Sig Dispense Refill amoxicillin (Amoxil) 500 MG tablet 4 tabs PO once 30-60 mins before procedure with food 4 tablet 3 aspirin 81 MG EC tablet Take 81 mg by mouth in the morning. Bioflavonoid Products (Renata-C) 500-550 MG tablet Orally Calcium Carb-Cholecalciferol (CALCIUM CARBONATE-VITAMIN D3 PO) Take 1 tablet by mouth in the morning and 1 tablet in the evening. hydroCHLOROthiazide (HYDRODiuril) 25 MG tablet Take 1 tablet (25 mg) by mouth Daily 90 tablet 3 metoprolol succinate XL (Toprol-XL) 50 MG 24 hr tablet TAKE 1 TABLET BY MOUTH IN THE MORNING 100 tablet 3 albuterol HFA (ProAir HFA) 90 mcg/act inhaler Inhale 2 puffs every 4 (four) hours if needed for wheezing 18 g 11 No current facility-administered medications on file prior to visit. I have reviewed and reconciled the history and medication list with the patient today. 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 Matamoros Visit Vitals Ht 5' 1 BMI 25.32 kg/m Smoking Status Never BSA 1.62 m Review of Systems Constitutional: Negative. Eyes: Negative. Respiratory: Negative. Cardiovascular: Negative. Gastrointestinal: Negative. Genitourinary: Negative. Skin: Fungal infection at the bilateral thumbs and ;left 4th digit Neurological: Negative. Psychiatric/Behavioral: Negative. Endocrine: Negative. Allergic/Immunologic: Negative. Objective Physical Exam Constitutional: Appearance: Normal appearance. HENT: Head: Normocephalic and atraumatic. Right Ear: Tympanic membrane, ear canal and external ear normal. Left Ear: Tympanic membrane, ear canal and external ear normal. Nose: Nose normal. Mouth/Throat: Mouth: Mucous membranes are moist. Pharynx: Oropharynx is clear. Eyes: Conjunctiva/sclera: Conjunctivae normal. Cardiovascular: Rate and Rhythm: Normal rate and regular rhythm. Pulses: Normal pulses. Heart sounds: Normal heart sounds. Pulmonary: Effort: Pulmonary effort is normal. Breath sounds: Normal breath sounds. Abdominal: General: Bowel sounds are normal. Musculoskeletal: General: Normal range of motion. Cervical back: Normal range of motion and neck supple. Skin: General: Skin is warm and dry. Comments: Fungal infection bilateral thumb nails, left 4th digit fungal nail Neurological: Mental Status: She is alert. Assessment/Plan 1. Fungal nail infection (Primary) Discussed use of diflucan and its most common side effects. Discussed use of fungoid tincture to the nail beds daily. Advised to continue as ordered and follow up as discussed. - fluconazole (Diflucan) 100 MG tablet; Take 1 tablet (100 mg) by mouth Daily for 14 days Dispense: 14 tablet; Refill: 0 - Miconazole Nitrate 2 % solution; Apply 1 Application topically Daily Continue x 4 months Dispense: 29.57 mL; Refill: 2 2. Viral upper respiratory tract infection This has resolved with the use of the medrol dose pack from urgent care. No follow-ups on file. 3. Essential (hemorrhagic) thrombocythemia (CMS/HCC) Stable. 04/26/24 PLATELET COUNT 140 - 400 Thousand/uL 422 High documented in this encounter [facility] 08-05-2024 Instructions Jenny Ornelas NP - 08/05/2024 2:00 PM EST Diflucan and fungoid tincture is added today for fungal nails. documented in this encounter [facility] 05-08-2024 Evaluation note Diagnosis Onset Date Resolution Injury of shoulder, right acute May 08, 024 2:40pm Bronchitis acute July 30, 2024 11:39am [facility] Work Phone: [phone]) 635-139011-18-2024 History of Present illness Narrative* Belén Burleson MD - 04/26/2024 9:54 AM ESTAssociated Problem(s): ETD (Eustachian tube dysfunction), left OTC Claritin * Belén Burleson MD - 04/26/2024 9:45 AM ESTAssociated Problem(s): Medicare annual wellness visit, subsequent Colonoscopy every 10 years or Cologuard every 3 years ages 50-75 Flu Vaccine yearly Pneumovax and Prevnar Mammo yearly for women and PSA yearly for men Labs/Screening yearly to rule out Diabetes, Chronic Kidney disease and liver disease Hepatitis Screen forat risk populations Shingles vaccine after65 if indicated Tetanus Vaccine every 10 years Lipids yearly under the age of 75 If Smoking history: one time CT scan of chest and Ultrasound of Aorta to screen for Anuerysm * Belén Burleson MD - 04/26/2024 9:44 AM ESTAssociated Problem(s): Benign essential hypertension (CMS/HCC) Our specific goals, for your hypertension, is to keep your blood pressure less than 140/90, and theimportance of weight control. We made recommendations on how to control your blood pressure, and minimize your risk of these copmplications. We also discussed your current barriers to a healthy living and importance of healthy diet and exercise. Prior to your visit today we have reviewed your chart and formed a plan to assist with providing you the best possible care. We reviewed the possible complications of hypertension including, stroke, heart failure and kidney impairment. In addition, we discussed your medications, the importance of taking them as prescribed. DASH diet handouts * Belén Burleson MD - 04/26/2024 9:30 AM EST Images from the original note were not included. Subjective : Chief Complaint: Surjit Patiño is an 83 y.o. female here for an annual wellness visit. I have reviewed and reconciled the history and medication list with the patient today. Current Outpatient Medications Medication Sig Dispense Refill albuterol HFA (ProAir HFA) 90 mcg/act inhaler Inhale 2 puffs every 4 (four) hours if needed for wheezing 18 g 11 aspirin 81 MG EC tablet Take 81 mg by mouth in the morning. Bioflavonoid Products (Renata-C) 500-550 MG tablet Orally Calcium Carb-Cholecalciferol (CALCIUM CARBONATE-VITAMIN D3 PO) Take 1 tablet by mouth in the morning and 1 tablet in the evening. hydroCHLOROthiazide (HYDRODiuril) 25 MG tablet Take 1 tablet (25 mg) by mouth Daily 30 tablet 11 metoprolol succinate XL (Toprol-XL) 50 MG 24 hr tablet TAKE 1 TABLET BY MOUTH IN THE MORNING 100 tablet 0 No current facility-administered medications for this visit. Review of Systems Constitutional: Negative for chills, fatigue, fever and unexpected weight change. HENT: Positive for ear pain and rhinorrhea. Respiratory: Negative for cough. Cardiovascular: Negative for chest pain. Gastrointestinal: Negative for abdominal pain, anal bleeding, blood in stool, constipation, diarrhea, nausea and vomiting. Genitourinary: Negative for dysuria, enuresis, frequency and hematuria. Musculoskeletal: Negative for back pain. Neurological: Negative for dizziness, tremors, syncope, facial asymmetry and speech difficulty. Psychiatric/Behavioral: Negative for agitation, behavioral problems, confusion and dysphoric mood. The patient is not nervous/anxious. List of current healthcare providers: Patient Care Team: Belén Burleson MD as PCP - General (Family Medicine) Belén Burleson MD as PCP - ACO [employer] Medicare Annual Visit Over the past 2 weeks, how often have you been bothered by any of the following problems? Little interest or pleasure in doing things: Not at all Feeling down, depressed, or hopeless: Not at all Patient Health Questionnaire-2 Score: 0 [place] Fall Risk History of Falling, Immediate or Within 3 Months: No Health Risk Assessment Form Do you need help eating, bathing, using the toilet, dressing, or getting around your home?: No Can you prepare your own meals?: Yes Can you do your own housework without help?: Yes Can you shop for groceries or clothes without help?: Yes Do you exercise for about 20 minutes 3 or more days a week?: Yes How confident are you that you can control and manage most of your health problems?: Very confident Can you mange your money, credit cards and accounts, pay bills and taxes?: Yes Vision Screening: Yes, no gross abnormalities Hearing Screening: Yes, no gross abnormalities Cognitive Screening Self Assessment: No overt cognitive deficiency is apparent by direct observation Three Word Registration: Greg Zavala, Finger Clock Drawing: Normal Clock - 2 Three Word Recall: All 3 words correct - 3 Total Score (0-5 Points): 5 Pain Assessment Pain Score: 0 - No pain Advance Care Planning Do you have a living will?: Yes Do you have a medical power of state attorney?: Yes Objective : BP 134/88 Pulse 80 Ht 5' 1 Wt 134 lb SpO2 98% BMI 25.32 kg/m No results found. Physical Exam Constitutional: General: She is not in acute distress. Appearance: Normal appearance. HENT: Head: Normocephalic. Right Ear: Tympanic membrane, ear canal and external ear normal. There is no impacted cerumen. Left Ear: Tympanic membrane, ear canal and external ear normal. There is no impacted cerumen. Nose: Congestion and rhinorrhea present. Neck: Vascular: No carotid bruit. Cardiovascular: Rate and Rhythm: Normal rate and regular rhythm. Pulmonary: Effort: Pulmonary effort is normal. No respiratory distress. Breath sounds: Normal breath sounds. Neurological: General: No focal deficit present. Mental Status: She is alert and oriented to person, place, and time. Psychiatric: Mood and Affect: Mood normal. Assessment/Plan : The following health maintenance schedule was reviewed with the patient and provided in printed form in the after visit summary: Health Maintenance Topic Date Due Medicare Annual Wellness (AWV) 04/26/2025 Influenza Vaccine Completed Pneumococcal Vaccine: 65+ Years Completed Advance Care Planning Patient willing to discuss ACP. If in place, renew periodically. If not in place, recommend obtaining ACP. Assessment/Plan Problem List Items Addressed This Visit Benign essential hypertension (CMS/HCC) Our specific goals, for your hypertension, is to keep your blood pressure less than 140/90, and theimportance of weight control. We made recommendations on how to control your blood pressure, and minimize your risk of these copmplications. We also discussed your current barriers to a healthy living and importance of healthy diet and exercise. Prior to your visit today we have reviewed your chart and formed a plan to assist with providing you the best possible care. We reviewed the possible complications of hypertension including, stroke, heart failure and kidney impairment. In addition, we discussed your medications, the importance of taking them as prescribed. DASH diet handouts Relevant Orders CBC and differential Comprehensive metabolic panel Medicare annual wellness visit, subsequent - Primary Colonoscopy every 10 years or Cologuard every 3 years ages 50-75 Flu Vaccine yearly Pneumovax and Prevnar Mammo yearly for women and PSA yearly for men Labs/Screening yearly to rule out Diabetes, Chronic Kidney disease and liver disease Hepatitis Screen forat risk populations Shingles vaccine after65 if indicated Tetanus Vaccine every 10 years Lipids yearly under the age of 75 If Smoking history: one time CT scan of chest and Ultrasound of Aorta to screen for Anuerysm Relevant Orders CBC and differential Comprehensive metabolic panel Lipid panel ETD (Eustachian tube dysfunction), left OTC Claritin Other Visit Diagnoses Abnormal glucose tolerance test Relevant Orders Comprehensive metabolic panel Screening for lipid disorders Relevant Orders Lipid panel Orders Placed This Encounter Procedures CBC and differential Standing Status: Future Number of Occurrences: 1 Standing Expiration Date: 04/26/2025 Order Specific Question: Print requisition? Answer: No Comprehensive metabolic panel Standing Status: Future Number of Occurrences: 1 Standing Expiration Date: 04/26/2025 Order Specific Question: Print requisition? Answer: No Lipid panel Standing Status: Future Number of Occurrences: 1 Standing Expiration Date: 04/26/2025 Electronically signed by Belén Burleson MD on April 26, 2024 [id number] History of Present illness Narrative* Cary Matamoros, DO - 01/27/2024 10:15 AM EDT Images from the original note were not included. HISTORY OF PRESENT ILLNESS: Surjit Patiño is an 83 y.o. @ female. Follow up RT TKA Right knee: 9 years s/p RT TKA (dos 01/16/15). Doing well. She is walking well assisted. She notes some sorenesswith stairs. Not taking anything for the pain. Scar well healed. Pleased with outcome of surgery. MEDICATION: Current Outpatient Medications on File Prior to Visit Medication Sig Dispense Refill albuterol HFA (ProAir HFA) 90 mcg/act inhaler Inhale 2 puffs every 4 (four) hours if needed for wheezing 18 g 11 amoxicillin (Amoxil) 500 MG tablet 4 tabs PO once 30-60 mins before procedure with food 4 tablet 3 aspirin 81 MG EC tablet Take 81 mg by mouth in the morning. Bioflavonoid Products (Renata-C) 500-550 MG tablet Orally Calcium Carb-Cholecalciferol (CALCIUM CARBONATE-VITAMIN D3 PO) Take 1 tablet by mouth in the morning and 1 tablet in the evening. hydroCHLOROthiazide (HYDRODiuril) 25 MG tablet Take 1 tablet (25 mg) by mouth Daily 30 tablet 11 metoprolol succinate XL (Toprol-XL) 50 MG 24 hr tablet TAKE 1 TABLET BY MOUTH IN THE MORNING 100 tablet 0 No current facility-administered medications on file prior to visit. 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 Slight laxity with varus valgus stress to the right knee when the knee is relaxed at 30 degrees. Chronic effusion normal temp normal color no instability 0-130 degrees range of motion right knee Left knee no effusion normal temp normal color no instability 0-130 degrees range motion of the left knee IMAGING: XR knee 1 or 2 views right Imaging Result: January 27, 2024 x-rays AP weight-bearing bilateral knees and lateral of the right knee demonstrate cemented knee replacement in good position alignment. There are no signs of loosening fracture or failure. There is also a knee replacement on the left side in good position alignment. Impression: Stable appearance of right total knee replacement Yury Matamoros D.O. ASSESSMENT: ICD-10-CM 1. Primary osteoarthritis of right knee M17.11 XR knee 1 or 2 views right 2. History of total right knee replacement Z96.651 PLAN: Follow up in one year with xrays, any issues/concerns follow up sooner. Dr. Matamoros obtained history and examined the patient, I am acting as scribe for Dr. Matamoros/georgette Matamoros D.O. documented in this encounter[facility] HealthcareEvaluation note* Diagnosis Routine general medical examination at health care facility- Primary Routine general medical examination at a health care facility Essential hypertension (CMS/HCC) Unspecified essential hypertension Benign hypertension (CMS/HCC) Essential hypertension, benign Essential hypertension (CMS/HCC)- Primary Unspecified essential hypertension Orthopnea Wheeze Wheezing Essential hypertension (CMS/HCC)- Primary Unspecified essential hypertension Sprain of left sternoclavicular joint, sequela Routine general medical examination at health care facility- Primary Routine general medical examination at a health care facility Abnormal glucose tolerance test Impaired glucose tolerance test Benign essential hypertension (CMS/HCC) Essential hypertension, benign Medicare annual wellness visit, subsequent Screening for lipid disorders ETD (Eustachian tube dysfunction), left documented in this encounter [facility]* Diagnosis Primary osteoarthritis of right knee History of total right knee replacement documented in this encounter [facility]* Diagnosis Routine general medical examination at health care facility- Primary Routine general medical examination at a health care facility Essential hypertension (CMS/HCC) Unspecified essential hypertension Benign hypertension (CMS/HCC) Essential hypertension, benign Essential hypertension (CMS/HCC)- Primary Unspecified essential hypertension Orthopnea Wheeze Wheezing Essential hypertension (CMS/HCC)- Primary Unspecified essential hypertension Sprain of left sternoclavicular joint, sequela Routine general medical examination at health care facility- Primary Routine general medical examination at a health care facility Abnormal glucose tolerance test Impaired glucose tolerance test Benign essential hypertension (CMS/HCC) Essential hypertension, benign Medicare annual wellness visit, subsequent Screening for lipid disorders ETD (Eustachian tube dysfunction), left Fungal nail infection- Primary Viral upper respiratory tract infection Acute upper respiratory infections of unspecified site Essential (hemorrhagic) thrombocythemia (CMS/HCC) documented in this encounter [facility]* Diagnosis Routine general medical examination at health care facility- Primary Routine general medical examination at a health care facility Essential hypertension (CMS/HCC) Unspecified essential hypertension Benign hypertension (CMS/HCC) Essential hypertension, benign Essential hypertension (CMS/HCC)- Primary Unspecified essential hypertension Orthopnea Wheeze Wheezing Essential hypertension (CMS/HCC)- Primary Unspecified essential hypertension Sprain of left sternoclavicular joint, sequela Routine general medical examination at health care facility- Primary Routine general medical examination at a health care facility Abnormal glucose tolerance test Impaired glucose tolerance test Benign essential hypertension ([facility]/HCC) Essential hypertension, benign Medicare annual wellness visit, subsequent Screening for lipid disorders ETD (Eustachian tube dysfunction), left Status post bilateral knee replacements- Primary Acute pain of left knee documented in this encounter [facility] HealthcareEvaluation [facility]* Diagnosis Routine general medical examination at health care facility- Primary Routine general medical examination at a health care facility Essential hypertension (CMS/HCC) Unspecified essential hypertension Benign hypertension (CMS/HCC) Essential hypertension, benign Essential hypertension (CMS/HCC)- Primary Unspecified essential hypertension Orthopnea Wheeze Wheezing Essential hypertension (CMS/HCC)- Primary Unspecified essential hypertension Sprain of left sternoclavicular joint, sequela Routine general medical examination at health care facility- Primary Routine general medical examination at a health care facility Abnormal glucose tolerance test Impaired glucose tolerance test Benign essential hypertension (CMS/HCC) Essential hypertension, benign Medicare annual wellness visit, subsequent Screening for lipid disorders ETD (Eustachian tube dysfunction), left Onychomycosis of nail of digit of hand- Primary documented in this encounter [facility] Summary Purpose Family History No Family History Records FoundNo Family History Records FoundNo Family History Records FoundNo Family History Records Found Advance Directives Advance Directive Response Recorded Date/ Time Advance Directives No April 2:37pm Chief Complaint and Reason for Visit Chief Complaint Admit Date right shoulder injury May 08 2:40pm chest congestion,wheezing July 30, 2024 11:39am R06.2 July 30, 2024 12:06pm Reason for Visit Admit Date Injury of shoulder, right May 08, 2024 2:40pm Bronchitis July 30, 2024 11:39am Additional Source Comments INFORMATION SOURCE (unrecogn ized section and content) DATE CREATED AUTHOR 10/19/2022 [facility] DATE CREATED AUTHOR AUTHOR'S ORGANIZ ATION 04/29/2024 [facility] DATE CREATED AUTHOR AUTHOR'S ORGANIZ ATION 08/07/2024 [facility] DATE CREATED AUTHOR AUTHOR'S ORGANIZ ATION 10/12/2024 [facility] EPIC Reason for Visit (unrecogniz ed section and content) Reason Comments Medicare Annual Wellness Visit Subsequen t Pt left ear will hurt her it will come and go Reason Comments Follow-up Reason Comments Follow-up Pt recently went to for cough/congestion dx: viral/URI Reason Comments Pain Care Teams (unrecognized sec tion and content) Reverse Unit Operator Relationship Specialty Start Date End Date Belén Burleson MD [address] [place] [address] [place] [address] PCP - General Family Medicine 10/21/22 Belén Burleson MD [address] [place] [address] [place] [address] PCP - ACO Reach 10/31/22 Reverse Unit Operator Relationship Specialty Start Date End Date Belén Burleson MD [address] [facility] [address] [place] [address] PCP - General Family Medicine 10/21/22 Belén Burleson MD [address] [facility] [address] [place] [address] PCP - ACO Reach 10/31/22 Reverse Unit Operator Relationship Specialty Start Date End Date Belén Burleson MD [address] [facility] [address] [place] [address] PCP - General Family Medicine 10/21/22 Belén Burleson MD [address] [facility] [address] [place] [address] PCP - ACO Reach 10/31/22 Reverse Unit Operator Relationship Specialty Start Date End Date Belén Burleson MD [address] [facility] [address] [place] [address] PCP - General Family Medicine 10/21/22 Belén Burleson MD [address] [place] [address] [place] [address] PCP - ACO Reach 10/31/22 Team Status: Active Member Role Status Dates Belén Burleson MD Primary Care Provider Active Team Status: Inactive Member Role Status Dates Natalia Thrasher APRN Attending Provider Active Start: May 08, 2024 End: May 08, 2024 Belén Burleson MD Primary Care Provider Active S tart: May 08, 2024 End: May 08, 2024 Team Status: Inactive Member Role Status Dates Belén Burleson MD Primary Care Provider Active S tart: July 30, 2024 End: July 30, 2024 Jeaneth Hunter APRN Attending Provider Active S tart: July 30, 2024 End: July 30, 2024 Team Status: Active Member Role Status Dates Belén Burleson MD Primary Care Provider Active S tart: July 30, 2024 Jeaneth Hunter APRN Attending Provider Active S tart: July 30, 2024 Reverse Unit Operator Relationship Specialty Start Date End Date Belén Burleson MD [address] [address] PCP - General Family Medicine 10/21/22 Belén Burleson MD [address] [address] PCP - ACO Reach 10/31/22 Reverse Unit Operator Relationship Specialty Start Date End Date Belén Burleson MD [address] [facility] [address] [place] [address] PCP - General Family Medicine 10/21/22 Belén Burleson MD [address] [facility] [address] [place] [address] PCP - ACO Reach 10/31/22 Reverse Unit Operator Relationship Specialty Start Date End Date Belén Burleson MD [address] [place] [address] [place] [address] PCP - General Family Medicine 10/21/22 Belén Burleson MD [address] [facility] [address] [place] [address] PCP - ACO Reach 10/31/22 Reverse Unit Operator Relationship Specialty Start Date End Date Belén Burleson MD [address] [facility] [address] [place] [address] PCP - General Family Medicine 10/21/22 Belén Burleson MD [address] [facility] [address] [place] [address] PCP - ACO Reach 10/31/22 Reverse Unit Operator Relationship Specialty Start Date End Date Belén Burleson MD [address] [facility] [address] [place] [address] PCP - General Family Medicine 10/21/22 Belén Burleson MD [address] [facility] [address] [place] [address] PCP - ACO Reach 10/31/22 Goals (unrecognized section and content) Goals may be documented in a n alternate sectionGoals may be documented in an alternate section FOR RECORDS PERTAINING TO PATIENTS WHO ARE OR HAVE BEEN ENROLLED IN A CHEMICAL DEPENDENCY/SUBSTANCEABUSE PROGRAM, SOME INFORMATION MAY BE OMITTED. This clinical summary was aggregated from multiple sources. Caution should be exercised in using it in the provision of clinical care. This summary normalizes information from multiple sources, and as a consequence, information in this document may materially change the coding, format and clinical context of patient data. In addition, data may be omitted in some cases. CLINICAL DECISIONS SHOULD BE BASED ON THE PRIMARY CLINICAL RECORDS. [facility]. provides no warranty or guarantee of the accuracy or completeness of information in this document.
--- NOTE | 2024-10-22 14:30 | MM_ITS ---
Patient Name: SURJIT PATIÑO MR#: [id number] : 1940 Exam Date: 10/22/2024 Ordering Doctor: DR JEANIE BURLESON M.D. RADIOLOGY REPORT PROCEDURE: MM TOMOSYNTHESIS SCREENING BI COMPARISON: MM TOMOSYNTHESIS SCREENING BI, 10/20/2023. MG MAMM SCREEN 3D JOSHUA CAD, 10/18/2022. MG MAMM SCREEN 3D JOSHUA CAD, 10/15/2021. MG MAMM JOSHUA SCRN W CAD DIG, 09/13/2013. INDICATIONS: Screening Calculator Name NCI Breast Cancer Risk Assessment Tool 5 Year Breast Cancer Risk 2.40% Lifetime Breast Cancer Risk 3.20% Personal Breast Cancer No Personal Ovarian Cancer No Treatments None Family Cancers Mother with cervical cancer at age 56; Mother with colon cancer at age 75. LOCATION: [facility] BREAST COMPOSITION: There are scattered areas of fibroglandular density. FINDINGS: DIAGNOSTIC CATEGORY 0--INCOMPLETE: NEED ADDITIONAL IMAGING EVALUATION. RIGHT BREAST: ASYMMETRY visible on only the craniocaudal view measuring 6 millimeters greatest dimension 5.2 cm from the nipple. There are benign-appearing calcifications. LEFT BREAST: No suspicious findings. Benign-appearing calcifications are present. ADDITIONAL MAMMOGRAPHIC VIEWS REQUIRED: RIGHT BREAST - Follow-up with spot compressed views of the right breast with ultrasound if necessary is recommended. PLEASE NOTE: A NORMAL MAMMOGRAM DOES NOT EXCLUDE THE POSSIBILITY OF BREAST CANCER. A CLINICALLY SUSPICIOUS PALPABLE LUMP SHOULD BE BIOPSIED. Dictated by: Andrey Moctezuma MD on 10/22/2024 at 16:34 Approved by: Andrey Moctezuma MD on 10/22/2024 at 16:37
== END 2024-10-22 13:40 | disposition home or self-care (01) ==
LOC: MAMMO 13:39
PROVIDERS: PCP Family Medicine; Visit Provider Family Medicine
DX: Z12.31 Encounter for screening mammogram for malignant neoplasm of breast (principal); E28.39 Other primary ovarian failure; Z80.0 Family history of malignant neoplasm of digestive organs; Z80.8 Family history of malignant neoplasm of other organs or systems; R92.8 Other abnormal and inconclusive findings on diagnostic imaging of breast
CPT/HCPCS: 77063; 77067; 77080